=== PATIENT | female | born 1950 | race Caucasian/White ===

== ENCOUNTER → 2022-08-29 | Outpatient (CLI) | payer MEDICARE ==
[2022-08-29 20:13] LABS: Anion Gap 10.2 mmol/L; Carbon Dioxide 25.8 mmol/L
== END | disposition home or self-care (01) ==
LOC: LABPAT 11:40
PROVIDERS: ATTEND Surgery
DX: Z01.812 Encounter for preprocedural laboratory examination (principal); K63.5 Polyp of colon; I51.7 Cardiomegaly; I44.4 Left anterior fascicular block; I49.8 Other specified cardiac arrhythmias; R94.31 Abnormal electrocardiogram [ECG] [EKG]
CPT/HCPCS: 80051; 93005

== ENCOUNTER 2022-08-31 11:30 | Day surgery (SDC) | payer MEDICARE ==
[2022-08-29 10:15] VITALS: BMI 27.4
[~2022-08-31 11:30] MED LIST: LACTATED RINGERS 1,000 ML IV SCH; LIDOCAINE 1% (10MG/ML) FOR IV START INTRADERMA PRN
[2022-08-31 12:09] VITALS: RESP 16; TEMP 97.9
[2022-08-31] MEDS ORDERED: PROPOFOL 10 MG/ML 20 ML VIAL IV ONE (13:17)
--- NOTE | 2022-08-31 13:20 | P.GSHP ---
History of Present Illness H&P Date: 08/31/22 Chief Complaint: Colon polyp 72-year-old female known to our service. Patient has history of previous cecal polyp. Polyp is still residual at the appendiceal orifice. Her today for colonoscopy. She is scheduled for laparoscopic cecotomy tomorrow. Past Medical History Past Medical History: GERD/Reflux, Hyperlipidemia Additional Past Medical History / Comment(s): HC LARGE POLYP SEEN ON LAST COLONOSCOPY IN MAY-DR. SKINNER UNABLE TO REMOVE AT THAT TIME History of Any Multi-Drug Resistant Organisms: None Reported Past Surgical History: Cholecystectomy Additional Past Surgical History / Comment(s): COLONOSCOPY. BILAT CATARACTS REMOVED WITH LENS IMPLANTS. BILAT CTR. BILAT KNEE SCOPES Past Anesthesia/Blood Transfusion Reactions: No Reported Reaction Smoking Status: Former smoker - Past Family History Son(s) Family Medical History: Cancer Medications and Allergies Home Medications Medication Instructions Recorded Confirmed Type Esomeprazole Magnesium [NexIUM 20 mg PO DAILY 08/29/22 08/29/22 History 24Hr] Simvastatin [Zocor] 20 mg PO HS 08/29/22 08/29/22 History Vit C/E/Cuperic/Zinc/Lutein 1 each PO BID 08/29/22 08/29/22 History [Preservision Lutein Softgel] Allergies Allergy/AdvReac Type Severity Reaction Status Date / Time No Known Allergies Allergy Verified 08/31/22 11:58 Surgical - Exam Vital Signs Temp Pulse Resp BP Pulse Ox 97.9 F 72 16 134/71 99 08/31/22 12:04 08/31/22 12:04 08/31/22 12:04 08/31/22 12:04 08/31/22 12:04 Physical exam: General: Well-developed, well-nourished HEENT: Normocephalic, sclerae nonicteric Abdomen: Nontender, nondistended Extremities: No edema Neuro: Alert and oriented Assessment and Plan (1) Colon polyp Narrative/Plan: Will proceed with colonoscopy at this time. Current Visit: Yes Status: Acute Code(s): K63.5 - POLYP OF COLON SNOMED Code(s): 45698986
[2022-08-31 14:14] VITALS: BP 128/74; PULSE 83
--- NOTE | 2022-08-31 16:04 | P.PCN ---
Date of Procedure: 08/31/22 Procedure(s) Performed: PREOPERATIVE DIAGNOSIS: Colon polyp POSTOPERATIVE DIAGNOSIS: Residual polypoid tissue at appendiceal orifice PROCEDURE: Colonoscopy ANESTHESIA: MAC SURGEON: Stuart Soler M.D. SPECIMENS: None ENDOSCOPIC PROCEDURE: The patient was placed on the endoscopy table in the left decubitus position. The Olympus colonoscope was inserted into the anus and passed under direct visualization to the base of the cecum. The appendiceal orifice was visualized. From that point the scope was slowly withdrawn inspecting all surfaces carefully. At the base of the cecum the appendiceal orifice was visualized. There was adenomatous appearing polypoid tissue at the orifice itself but this only extended a few millimeters beyond still orifice. The remainder of the cecum ascending transverse descending sigmoid and rectum appeared normal. There was mild left-sided diverticulosis. Digital rectal examination was normal. The patient was taken to the recovery room in stable condition per anesthesia guidelines. RECOMMENDATIONS: Resume liquid diet. Will proceed with laparoscopic cecectomy tomorrow.
== END 2022-08-31 14:18 | disposition home or self-care (01) ==
LOC: ORWHC2ENDO 11:30
PROVIDERS: ATTEND Surgery
DX: K63.5 Polyp of colon (principal); K21.9 Gastro-esophageal reflux disease without esophagitis; K57.30 Diverticulosis of large intestine without perforation or abscess without bleeding; E78.5 Hyperlipidemia, unspecified; Z90.49 Acquired absence of other specified parts of digestive tract; Z98.41 Cataract extraction status, right eye; Z98.42 Cataract extraction status, left eye; Z87.891 Personal history of nicotine dependence; Z79.899 Other long term (current) drug therapy
CPT/HCPCS: 45378; J2704

== ENCOUNTER 2022-09-01 06:43 | Inpatient (IN) | payer MEDICARE ==
[2022-08-29 10:24] VITALS: BMI 27.4
[~2022-09-01 06:43] MED LIST changes: +ACETAMINOPHEN TAB 500 MG TAB PO PRN; +DEXAMETHASONE SOD PHOSPHATE 4 MG/ML 1 ML VIAL IV ONE; +HEPARIN SODIUM,PORCINE/PF 5,000 UNIT/0.5 ML SYRINGE SQ PRN; +MIDAZOLAM 2 MG/2 ML VIAL IV PRN; +ONDANSETRON 4 MG/2 ML VIAL IVP ONE; +metroNIDAZOLE-NS PMX 500 MG in SALINE 1 100ML.BAG IVPB PRN
[2022-09-01] MEDS ORDERED: HYDROmorphone 0.5 MG/0.5 ML SYRINGE IVP PRN (07:00)
--- NOTE | 2022-09-01 08:33 | P.GSHP ---
History of Present Illness H&P Date: 09/01/22 Chief Complaint: Colon polyp 72-year-old female known to our service. Please refer to recent history and physicals. Patient has a polyp that has been removed endoscopically on several occasion. She apparently has history of previous appendectomy when she had her gallbladder removed many years ago. Recent endoscopies show residual polyp tissue only at the appendiceal orifice. The scope was done yesterday by myself confirming this. She is here today for laparoscopic cecectomy. Past Medical History Past Medical History: GERD/Reflux, Hyperlipidemia Additional Past Medical History / Comment(s): HC LARGE POLYP SEEN ON LAST COLONOSCOPY IN MAY-DR. SKINNER UNABLE TO REMOVE AT THAT TIME History of Any Multi-Drug Resistant Organisms: None Reported Past Surgical History: Cholecystectomy Additional Past Surgical History / Comment(s): COLONOSCOPY. BILAT CATARACTS REMOVED WITH LENS IMPLANTS. BILAT CTR. BILAT KNEE SCOPES Past Anesthesia/Blood Transfusion Reactions: No Reported Reaction Smoking Status: Former smoker - Past Family History Son(s) Family Medical History: Cancer Medications and Allergies Home Medications Medication Instructions Recorded Confirmed Type Esomeprazole Magnesium [NexIUM 20 mg PO DAILY 08/29/22 09/01/22 History 24Hr] Simvastatin [Zocor] 20 mg PO HS 08/29/22 09/01/22 History Vit C/E/Cuperic/Zinc/Lutein 1 each PO BID 08/29/22 09/01/22 History [Preservision Lutein Softgel] traMADol HCl [Ultram] 50 mg PO Q6H PRN #6 tab 09/01/22 Rx Allergies Allergy/AdvReac Type Severity Reaction Status Date / Time No Known Allergies Allergy Verified 09/01/22 07:39 Surgical - Exam Vital Signs Temp Pulse Resp BP Pulse Ox 99.1 F 86 16 140/74 99 09/01/22 07:28 09/01/22 07:28 09/01/22 07:28 09/01/22 07:28 09/01/22 07:28 Physical exam: General: Well-developed, well-nourished HEENT: Normocephalic, sclerae nonicteric Abdomen: Nontender, nondistended Extremities: No edema Neuro: Alert and oriented Assessment and Plan (1) Colon polyp Narrative/Plan: 72-year-old female with one polyp at base of cecum. We'll proceed with laparoscopic da Chyna assisted cecectomy, possible open, possible bowel resection. Risks of bleeding, infection, scarring, leak, abscess, recurrent polyp, conversion to an open procedure, bladder bowel and ureteral injury reviewed. She understands and wishes to proceed. Current Visit: No Status: Acute Code(s): K63.5 - POLYP OF COLON SNOMED Code(s): 98636334
[2022-09-01] MEDS ORDERED: LIDOCAINE 2% INJ 20 MG/ML (2 ML VIAL) ONE (09:05)
[2022-09-01] MEDS ORDERED: SUCCINYLCHOLINE CHLORIDE 200 MG/10 ML VIAL IV ONE (09:05)
[2022-09-01] MEDS ORDERED: SUGAMMADEX SODIUM 200 MG/2 ML SDV IV ONE (09:05)
[2022-09-01] MEDS ORDERED: PROPOFOL 10 MG/ML 20 ML VIAL IV ONE (09:05)
[2022-09-01] MEDS ORDERED: ROCURONIUM 10 MG/ML (5 ML VIAL) IV ONE (09:05)
[2022-09-01] MEDS ORDERED: fentaNYL (PF) 50 MCG/ML 2 ML AMP ONE (09:05)
[2022-09-01] MEDS ORDERED: HYDROmorphone (PF) 1 MG/ML ONE (09:05)
[2022-09-01] MEDS ORDERED: MIDAZOLAM 2 MG/2 ML VIAL ONE (09:05)
[2022-09-01] MEDS ORDERED: BUPIVACAINE (PF) 0.25% 30 ML VIAL SQ ONE ×2 (09:53)
[2022-09-01] MEDS ORDERED: LACTATED RINGERS 1,000 ML IV ONE (10:20)
[2022-09-01] MEDS ORDERED: NALOXONE 0.4 MG/ML 1 ML VIAL IV PRN (10:32)
[2022-09-01] MEDS ORDERED: traMADol 50 MG TAB PO PRN (10:32)
--- NOTE | 2022-09-01 10:39 | P.OP ---
Date of Procedure: 09/01/22 Procedure(s) Performed: PREOPERATIVE DIAGNOSIS: Polyp of cecum POSTOPERATIVE DIAGNOSIS: Polyp of cecum, adhesions, ischemic fatty nodule, small right indirect inguinal hernia PROCEDURE: Laparoscopic da Chyna assisted cecectomy, laparoscopic lysis of adhesions, excision fatty nodule SURGEON: Karlene EBL: Jose Manuel Pastrana ANESTHESIA: Gen. COMPLICATIONS: None OPERATIVE PROCEDURE: Patient brought and placed on the operating table in the supine position. The patient was placed under general anesthesia. The abdomen was prepped and draped sterilely. Entrance into the abdomen occurred through a left lateral quadrant 5 mm trocar. This was later switched to a robotic 8 mm trocar. 2 additional 8 mm trochars were placed in the suprapubic location and left upper mid abdomen. A 12 mm trocar was placed in the left upper quadrant. All trochars were placed under direct visualization. The robot was then docked. From inferior to superior our instruments were a bipolar grasper, camera, scissors, caudiere. The patient had some adhesions between the omentum and the abdominal wall in the upper abdomen that were lysed using sharp dissection and cautery. Inspection of the abdomen revealed a small indirect inguinal hernia on the right-hand side. The patient had a small 1.5 cm piece of fatty tissue that had previously torsed on its axis and was ischemic. This was removed sharply. This was sent with our main specimen to pathology. The cecum was inspected. The patient had scarring at the cecal base consistent with previous appendectomy. There was a discoloration there that was likely a silk stitch. The cecum was mobilized as there was some adhesions there as well. Some of the fat around the cecum was mobilized as well. Once we had enough space the 45 mm blue load stapler was utilized to remove the base of the cecum. A second firing of the stapler was necessary for a small piece of tissue laterally. No bleeding along the staple line was seen. The specimen was sent to pathology labeled base of cecum. The operative site was inspected and no bleeding was seen. The total Her trocar site fascia was closed using a single 0 Vicryl stitch with the Arley-Tereza technique. Trochars were all removed. Skin at all sites was closed using 4-0 Monocryl sutures. Skin glue and sterile dressings were applied. DISPOSITION: Stable to recovery room
[2022-09-01 10:40] VITALS: TEMP 97
[2022-09-01] MEDS ORDERED: droPERidol 5 MG/2 ML VIAL IVP ONE (11:32)
[2022-09-01 12:20] VITALS: RESP 20
[2022-09-01 13:40] VITALS: BP 130/70; PULSE 70
== END 2022-09-01 13:47 | disposition home or self-care (01) | DRG 331 ==
LOC: 2ORMAIN 06:43
PROVIDERS: ADMIT Surgery; ATTEND Surgery
PROC: 0DNU4ZZ Release Omentum, Percutaneous Endoscopic Approach (ICD-10-PCS; principal; 2022-09-01 08:40)
PROC: 0DBH4ZZ Excision of Cecum, Percutaneous Endoscopic Approach (ICD-10-PCS; principal; 2022-09-01 08:40)
DX: K63.5 Polyp of colon (principal); E78.5 Hyperlipidemia, unspecified; K66.0 Peritoneal adhesions (postprocedural) (postinfection); K40.90 Unilateral inguinal hernia, without obstruction or gangrene, not specified as recurrent; K21.9 Gastro-esophageal reflux disease without esophagitis; Z79.899 Other long term (current) drug therapy; Z87.891 Personal history of nicotine dependence
CPT/HCPCS: 86850; 86900; 86901; 88305

== ENCOUNTER 2024-07-01 09:43 | Day surgery (SDC) | payer MEDICARE ==
[2024-07-01] MEDS ORDERED: LACTATED RINGERS 1,000 ML IV SCH (10:06)
[2024-07-01 10:14] VITALS: TEMP 97.4
[2024-07-01] MEDS: IV FLUID CONTINUATION 1,000 ML IV ONE ×2 (10:19→10:36)
[2024-07-01] MEDS ORDERED: LIDOCAINE 1% INJ 10MG/ML (20 ML MDV) ONE (10:37)
[2024-07-01] MEDS ORDERED: PROPOFOL 10 MG/ML 20 ML VIAL IV ONE (10:37)
[2024-07-01 10:59] VITALS: PULSE 78
[2024-07-01 11:12] VITALS: BP 110/60; RESP 14
--- NOTE | 2024-07-01 12:25 | P.PCN ---
Date of Procedure: 07/01/24 Procedure(s) Performed: PREOPERATIVE DIAGNOSIS: History of colon polyp POSTOPERATIVE DIAGNOSIS: Cecal polyp, diverticulosis PROCEDURE: Colonoscopy with snare polypectomy and clip placement ANESTHESIA: MAC SURGEON: Stuart Soler M.D. SPECIMENS: Polyp ENDOSCOPIC PROCEDURE: The patient was placed on the endoscopy table in the left decubitus position. The Olympus colonoscope was inserted into the anus and passed under direct visualization to the region of the him. The patient's previous staple line was visualized partly. There was noted to be a sessile polyp present at the cecum measuring 12 x 6 mm in size. This was able to be removed into small pieces using the snare with cautery technique. This appeared completely resected. A clip was deployed there given the prior surgery and the location of the polyp to prevent postoperative complications. The remainder of the cecum and ascending transverse descending sigmoid and rectum were free of any neoplastic inflammatory or polypoid lesions. The patient had mild scattered diverticulosis. Digital rectal examination was normal. The patient was taken to the recovery room in stable condition per anesthesia guidelines. RECOMMENDATIONS: Await biopsy results. Anticipate repeat colonoscopy 1 year.
== END 2024-07-01 11:32 | disposition home or self-care (01) ==
LOC: ORWHC2ENDO 09:43
PROVIDERS: ATTEND Surgery
DX: D12.0 Benign neoplasm of cecum (principal); Z86.0100 Personal history of colon polyps, unspecified; K57.30 Diverticulosis of large intestine without perforation or abscess without bleeding
CPT/HCPCS: 45385; J2003; J2704; 88305